=== PATIENT | male | born 1985 | race American Indian/Alaskan Native ===

== ENCOUNTER 2016-11-24 07:45 | Emergency (ER) | payer SELFPAY ==
[2016-11-24 08:08] VITALS: BP 139/82
--- NOTE | 2016-11-24 12:25 | Emergency Department Report ---
- General Chief complaint: Skin/Abscess/Foreign Body Stated complaint: BOIL UNDERARM,NAUSEA/FEVER Time Seen by Provider: 11/24/16 11:41 Source: patient Mode of arrival: Ambulatory Limitations: No Limitations - History of Present Illness Initial comments: Patient states that he started to notice small painful bumps under both of his armpits about 1.5 weeks ago, denies any drainage and bleeding; has been taking his sister's bactrim but it hasn't helped; has had abscesses in past; says he had a subjective fever a few days ago, but also had cold sxs that have now resolved MD complaint: abscess/boil -: week(s) (1.5) Tetanus Up to Date: unsure Location: [facility] Severity: moderate Severity scale (0 -10): 7 Quality: other (throbbing) Consistency: constant Improves with: none Worsens with: palpation Context: none Associated symptoms: chills Treatments Prior to Arrival: antibiotic - Related Data Previous Rx's Medication Instructions Recorded Last Taken Type Cephalexin [Keflex] 500 mg PO Q6HR #40 capsule 11/24/16 Unknown Rx Ibuprofen [Motrin] 600 mg PO Q8H PRN #20 tablet 11/24/16 Unknown Rx Sulfamethoxazole/Trimethoprim 1 each PO BID #20 tablet 11/24/16 Unknown Rx [Bactrim DS TAB] traMADol [Ultram 50 MG tab] 50 mg PO Q6HR PRN #12 tablet 11/24/16 Unknown Rx Allergies Allergy/AdvReac Type Severity Reaction Status Date / Time No Known Allergies Allergy Unverified 11/24/16 08:03 Abscess Boil HPI - HPI Chief Complaint: Skin/Abscess/Foreign Body Stated Complaint: BOIL UNDERARM,NAUSEA/FEVER Time Seen by Provider: 11/24/16 11:41 Duration: >1 Week Location: Other (bilateral axilla) History: Yes Fever, Yes Pain, Yes Previous History, No Purulent Drainage, No Numbness, No Foreign Body, No Insect Bite Home Medications: Previous Rx's Medication Instructions Recorded Last Taken Type Cephalexin [Keflex] 500 mg PO Q6HR #40 capsule 11/24/16 Unknown Rx Ibuprofen [Motrin] 600 mg PO Q8H PRN #20 tablet 11/24/16 Unknown Rx Sulfamethoxazole/Trimethoprim 1 each PO BID #20 tablet 11/24/16 Unknown Rx [Bactrim DS TAB] traMADol [Ultram 50 MG tab] 50 mg PO Q6HR PRN #12 tablet 11/24/16 Unknown Rx Allergies/Adverse Reactions: Allergies Allergy/AdvReac Type Severity Reaction Status Date / Time No Known Allergies Allergy Unverified 11/24/16 08:03 ED Review of Systems ROS: Stated complaint: BOIL UNDERARM,NAUSEA/FEVER Other details as noted in HPI Constitutional: chills, fever ENT: denies: ear pain, throat pain, congestion Respiratory: denies: cough, shortness of breath, wheezing Cardiovascular: denies: chest pain, palpitations Gastrointestinal: denies: abdominal pain, nausea, vomiting, diarrhea Skin: lesions, other (abscesses). denies: rash Neurological: denies: headache ED Past Medical Hx - Past Medical History Previous Medical History?: No - Surgical History Past Surgical History?: No - Social History Smoking Status: Light Tobacco Smoker Substance Use Type: None - Medications Home Medications: Home Medications Medication Instructions Recorded Confirmed Last Taken Type Cephalexin [Keflex] 500 mg PO Q6HR #40 capsule 11/24/16 Unknown Rx Ibuprofen [Motrin] 600 mg PO Q8H PRN #20 tablet 11/24/16 Unknown Rx Sulfamethoxazole/Trimethoprim 1 each PO BID #20 tablet 11/24/16 Unknown Rx [Bactrim DS TAB] traMADol [Ultram 50 MG tab] 50 mg PO Q6HR PRN #12 tablet 11/24/16 Unknown Rx ED Physical Exam - General Limitations: No Limitations General appearance: alert, in no apparent distress - Head Head exam: Present: atraumatic, normocephalic, normal inspection - Eye Eye exam: Present: normal appearance, PERRL, EOMI Pupils: Present: normal accommodation - ENT ENT exam: Present: normal orophraynx, mucous membranes moist - Neck Neck exam: Present: full ROM - Respiratory Respiratory exam: Present: normal lung sounds bilaterally. Absent: respiratory distress, wheezes, rales, rhonchi, stridor - Cardiovascular Cardiovascular Exam: Present: regular rate, normal rhythm, normal heart sounds - Back Exam Back exam: Present: full ROM - Neurological Exam Neurological exam: Present: alert, oriented X3, normal gait - Psychiatric Psychiatric exam: Present: normal affect, normal mood - Skin Skin exam: Present: warm, dry, intact, other (multiple small erythematous abscesses in bilateral axilla, no fluctuance in any, TTP, no active bleeding or drainage) ED Course Vital Signs 11/24/16 07:56 Temperature 98.9 F Pulse Rate 77 Respiratory 17 Rate Blood Pressure 139/82 O2 Sat by Pulse 100 Oximetry ED Medical Decision Making - Medical Decision Making Will send home with bactrim ds and keflex, told him to complete all and use pain medicine as needed, told him to use warm compresses on them, follow up with PCP if sxs don't improve, he verbalized understanding Critical care attestation.: If time is entered above; I have spent that time in minutes in the direct care of this critically ill patient, excluding procedure time. ED Disposition Clinical Impression: Abscess of axilla, left, Cutaneous abscess of right axilla Disposition: DISCHARGED TO HOME OR SELFCARE Is pt being admited?: No Does the pt Need Aspirin: No Condition: Stable Instructions: Abscess (ED) Prescriptions: Cephalexin [Keflex] 500 mg PO Q6HR #40 capsule Ibuprofen [Motrin] 600 mg PO Q8H PRN #20 tablet PRN Reason: Pain Sulfamethoxazole/Trimethoprim [Bactrim DS TAB] 1 each PO BID #20 tablet traMADol [Ultram 50 MG tab] 50 mg PO Q6HR PRN #12 tablet PRN Reason: Pain Referrals: PRIMARY CARE, [Primary Care Provider] - 3-5 Days Time of Disposition: 12:25 Print Language: KHMER
== END 2016-11-24 12:30 | disposition home or self-care (01) ==
LOC: ED 07:45
DX: L02.412 Cutaneous abscess of left axilla (principal); L02.411 Cutaneous abscess of right axilla; F17.200 Nicotine dependence, unspecified, uncomplicated
CPT/HCPCS: 99282

== ENCOUNTER 2017-05-31 10:55 | Emergency (ER) | payer MEDICAID ==
[2017-05-31 11:31] VITALS: BP 127/70
--- NOTE | 2017-05-31 11:31 | Emergency Department Report ---
Stated Complaint: FALL AT WORK, BACK PAIN AND HEAD PAIN Time Seen by Provider: 05/31/17 11:29 - HPI History of Present Illness: PT states he fell 05-13-17 and then he fell again today. 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 Due to findings the following was ordered: ct, xr ED Disposition for MSE Condition: Stable
--- NOTE | 2017-05-31 11:53 | Cat Scan Report ---
CRANIAL CT SCAN: History: Loss of consciousness after a fall with head trauma. Serial contiguous axial images were obtained through the cranium. Intravenous contrast material was not administered. The ventricles are normal in size and appearance. There is no mass effect or midline shift. No areas of abnormally increased or decreased attenuation are seen. No mass lesion is seen. The mastoid air cells and visualized portions of the sinuses are normal. IMPRESSION: Cranial CT scan within normal limits.
--- NOTE | 2017-05-31 12:22 | Cat Scan Report ---
CT SCAN OF THE CERVICAL SPINE: HISTORY: Neck injury after fall. TECHNIQUE: Contiguous 1.25 mm axial images of the cervical spine were obtained. Sagittal and coronal reformatted images. FINDINGS: There is normal alignment of the cervical spine. The body, pedicles and posterior ligaments appear normal. No evidence of fracture or subluxation is seen. The spinal canal appears normal. The prevertebral soft tissues appear normal. IMPRESSION: Unremarkable CT of the cervical spine. No acute process is noted.
--- NOTE | 2017-05-31 14:21 | XRay Report ---
LUMBOSACRAL SPINE, 3 VIEWS: History: Back pain Findings: The vertebral bodies, disk spaces and posterior elements are intact. No compression deformity or malalignment. The SI joints are symmetric and unremarkable. Impression: 1. No evidence for acute injury to the lumbar spine.
--- NOTE | 2017-05-31 14:22 | XRay Report ---
THORACIC SPINE, 2 views: History: Back pain after fall. The bones are normally mineralized with well preserved vertebral height, alignment and interspace distances. No paraspinal soft tissue widening is noted. IMPRESSION: Normal study.
--- NOTE | 2017-05-31 16:08 | Emergency Department Report ---
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 Pt states that he was in the bathroom and slipped and fell. Pt states that he was seen at the ER in [place] and they told him that the issue was not emergent per patient and was discharged with recommendations to take OTC medications. Pt states that he feels nauseous when he moves his head. Pt has been trying OTC medications with no relief of the symptoms. Pt also reports to some mid and low back pain, he denies any numbness, tingling, saddle anesthsia, or bowel/bladder incontinences. Pt also denies any chest pain, SOB, fever, or chills. - Related Data Previous Rx's Medication Instructions Recorded Last Taken Type Cephalexin [Keflex] 500 mg PO Q6HR #40 capsule 11/24/16 Unknown Rx Ibuprofen [Motrin] 600 mg PO Q8H PRN #20 tablet 11/24/16 Unknown Rx Sulfamethoxazole/Trimethoprim 1 each PO BID #20 tablet 11/24/16 Unknown Rx [Bactrim DS TAB] traMADol [Ultram 50 MG tab] 50 mg PO Q6HR PRN #12 tablet 11/24/16 Unknown Rx Acetaminophen [Acetaminophen ER 650 mg PO Q8HR PRN #18 tablet.er 05/31/17 Unknown Rx TAB] methOCARBAMOL [Robaxin TAB] 500 mg PO BID PRN #14 tab 05/31/17 Unknown Rx Allergies Allergy/AdvReac Type Severity Reaction Status Date / Time cyclobenzaprine HCl Allergy Unknown Verified 05/31/17 16:22 [From Flexeril] ibuprofen [From Motrin] Allergy Unknown Verified 05/31/17 16:22 tramadol Allergy Unknown Verified 05/31/17 16:22 ED Review of Systems ROS: Stated complaint: FALL AT WORK, BACK PAIN AND HEAD PAIN Other details as noted in HPI Constitutional: denies: chills, fever Eyes: denies: eye pain, eye discharge, vision change ENT: denies: as per HPI, ear pain, throat pain Respiratory: denies: cough, shortness of breath, wheezing Cardiovascular: denies: chest pain, palpitations Endocrine: no symptoms reported Gastrointestinal: denies: abdominal pain, nausea, diarrhea Genitourinary: denies: urgency, dysuria Musculoskeletal: back pain Skin: denies: rash, lesions Neurological: headache, weakness Psychiatric: denies: anxiety, depression Hematological/Lymphatic: denies: easy bleeding, easy bruising ED Past Medical Hx - Past Medical History Previous Medical History?: No - Surgical History Past Surgical History?: No - Social History Smoking Status: Current Every Day Smoker Substance Use Type: None - Medications Home Medications: Home Medications Medication Instructions Recorded Confirmed Last Taken Type Cephalexin [Keflex] 500 mg PO Q6HR #40 capsule 11/24/16 Unknown Rx Ibuprofen [Motrin] 600 mg PO Q8H PRN #20 tablet 11/24/16 Unknown Rx Sulfamethoxazole/Trimethoprim 1 each PO BID #20 tablet 11/24/16 Unknown Rx [Bactrim DS TAB] traMADol [Ultram 50 MG tab] 50 mg PO Q6HR PRN #12 tablet 11/24/16 Unknown Rx Acetaminophen [Acetaminophen ER 650 mg PO Q8HR PRN #18 tablet.er 05/31/17 Unknown Rx TAB] methOCARBAMOL [Robaxin TAB] 500 mg PO BID PRN #14 tab 05/31/17 Unknown Rx ED Physical Exam - General Limitations: No Limitations General appearance: alert, in no apparent distress - Head Head exam: Present: atraumatic, normocephalic, normal inspection, other (full flexion, extension, abduction, and adduction of the head) - Eye Eye exam: Present: normal appearance, PERRL, EOMI - ENT ENT exam: Present: mucous membranes moist - Neck Neck exam: Present: normal inspection, full ROM - Respiratory Respiratory exam: Present: normal lung sounds bilaterally. Absent: respiratory distress - Cardiovascular Cardiovascular Exam: Present: regular rate, normal rhythm. Absent: systolic murmur, diastolic murmur, rubs, gallop - Extremities Exam Extremities exam: Present: normal inspection, full ROM - Back Exam Back exam: Present: normal inspection, full ROM, tenderness (mild tenderness along the thoracic and lumbar region), muscle spasm, paraspinal tenderness, other (no redness, swelling, or warmth noted) - Neurological Exam Neurological exam: Present: alert, oriented X3, CN II-XII intact, normal gait, other (balance and coordination was normal without any deficits) - Expanded Neurological Exam Expanded Patient oriented to: Present: person, place, time Speech: Present: fluid speech (normal no deficits) Cranial nerves: EOM's Intact: Normal Cerebellar function: Finger to Nose: Normal, Heel to [place]: Normal Sensory exam: Upper Extremity Light Touch: Normal, Lower Extremity Light Touch: Normal Motor strength exam: RUE: 5, LUE: 5, RLE: 5, LLE: 5 DTR: knee (R): 2+, knee (L): 2+ Best Eye Response (Tom): (4) open spontaneously Best Motor Response (Tom): (6) obeys commands Best Verbal Response ([place]): (5) oriented [place] Total: 15 - Psychiatric Psychiatric exam: Present: normal affect, normal mood - Skin Skin exam: Present: warm, dry, intact, normal color, other (no raccoon eyes or castillo sign apparent). Absent: rash ED Course Vital Signs 05/31/17 11:29 Temperature 98.2 F Pulse Rate 83 Respiratory 18 Rate Blood Pressure 127/70 O2 Sat by Pulse 99 Oximetry ED Medical Decision Making - Radiology Data Radiology results: image reviewed Imaging including: c-spine, CT head, L spine, and T-spine were conducted in the ED today, all of the imaging was unremarkable. - Medical Decision Making Pt was complaining of lignering pain and effects after a fall that occured on May 12. We have conducted CT head, C-spine, l spine xray, and t spine xray imaging in the ED all of which were unremarkable. On examination pt was alert and oriented, neurological examination was unremarkable, no focal/neuro deficits. Pt was alert and oriented, cerebellum and gait was normal. 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 Pt was given referrals to neurology and orthopedics for further evaluation for continued/worsening symptoms. pt's vitals were all stable here in the ED. Pt was in such a hurry to leave stating that he had to pickle pumper his child, that he did not stay for any pain medications in the ER. Critical care attestation.: If time is entered above; I have spent that time in minutes in the direct care of this critically ill patient, excluding procedure time. ED Disposition Clinical Impression: Headache Qualifiers: Headache type: unspecified Headache chronicity pattern: unspecified pattern Intractability: not intractable Qualified Code(s): R51 - Headache Back pain Qualifiers: Back pain location: thoracic back pain Chronicity: acute Back pain laterality: midline Qualified Code(s): M54.6 - Pain in thoracic spine Disposition: DC-01 TO HOME OR SELFCARE Is pt being admited?: No Does the pt Need Aspirin: No Condition: Stable Instructions: Methocarbamol (By mouth), Back Pain (ED) Additional Instructions: Please take the medications as given to you as needed for the pain. Please be advised that such medications may cause drowsiness, do not take when driving or operating heavy machinery. Please follow-up with pcp within 3-5 days. Neurology and orthopedic referrals provided to you for continued symptoms. Please return to the ED immediately with any acute worsening of symptoms. Prescriptions: Acetaminophen [Acetaminophen ER TAB] 650 mg PO Q8HR PRN #18 tablet.er PRN Reason: Pain methOCARBAMOL [Robaxin TAB] 500 mg PO BID PRN #14 tab PRN Reason: muscle spasms Referrals: PRIMARY CAREMD [Primary Care Provider] - 3-5 Days ROXANE BLUNT MD [Staff Physician] - 3-5 Days ALETHA LYONS MD [Staff Physician] - 3-5 Days [facility] [Outside] - 3-5 Days [facility] [Outside] - 3-5 Days Forms: Work/School Release Form
== END 2017-05-31 16:20 | disposition home or self-care (01) ==
LOC: ED 10:55
DX: R51 Headache (principal); M54.6 Pain in thoracic spine; F17.200 Nicotine dependence, unspecified, uncomplicated; Z88.6 Allergy status to analgesic agent; Z88.8 Allergy status to other drugs, medicaments and biological substances; W01.0XXA Fall on same level from slipping, tripping and stumbling without subsequent striking against object, initial encounter; Y93.89 Activity, other specified; Y92.89 Other specified places as the place of occurrence of the external cause; Y99.8 Other external cause status
CPT/HCPCS: 70450; 72070; 72100; 72125

== ENCOUNTER 2017-10-17 06:59 | Emergency (ER) | payer MEDICAID, OTHER ==
[2017-10-17 07:34] VITALS: BP 115/66
[2017-10-17 07:58] LABS: Basophils # (Auto) 0.1 K/mm3 (0.0-0.1); Basophils % (Auto) 1.1 % (0.0-1.8); Eosinophils % (Auto) 0.3 % (0.0-4.3); Hemoglobin 15.4 gm/dl (11.8-15.2); Lymphocytes # (Auto) 0.6 K/mm3 (1.2-5.4); Lymphocytes % (Auto) 7.2 % (13.4-35.0); Mean Corpuscular HGB Conc 34 % (32-34); Mean Corpuscular Hemoglobin 31 pg (28-32); Mean Corpuscular Volume 90 fl (84-94); Monocytes # (Auto) 1.3 K/mm3 (0.0-0.8); Monocytes % (Auto) 15.2 % (0.0-7.3); Platelet Count 211 K/mm3 (140-440); Red Blood Count 5.02 M/mm3 (3.65-5.03); Red Cell Distribution Width 13.6 % (13.2-15.2)
[2017-10-17 08:12] LABS: Alanine Aminotransferase 12 units/L (7-56); Albumin 3.8 g/dL (3.9-5); BUN/Creatinine Ratio 5; Blood Urea Nitrogen 5 mg/dL (9-20); Calcium 8.9 mg/dL (8.4-10.2); Hemolysis Index 8
[2017-10-17 08:30] LABS: Bilirubin,Urine NEG (Negative); Blood,Urine NEG (Negative); Color,Urine Yellow (Yellow); Mucus,Urine FEW /HPF; Nitrite,Urine NEG (Negative); Protein,Urine <15 mg/dL mg/dL (Negative); Urobilinogen,Urine < 2.0 mg/dL (<2.0); WBC,Urine < 1.0 /HPF (0.0-6.0)
== END 2017-10-17 11:19 | disposition left against medical advice (07) ==
LOC: ED 06:59
DX: J00 Acute nasopharyngitis [common cold] (principal); Z53.21 Procedure and treatment not carried out due to patient leaving prior to being seen by health care provider
CPT/HCPCS: 36415; 80053; 81001; 85025

== ENCOUNTER 2018-12-11 07:53 | Emergency (ER) | payer SELFPAY ==
[2018-12-11 07:58] VITALS: BP 140/82
--- NOTE | 2018-12-11 08:59 | Emergency Department Report ---
Abscess Boil HPI - HPI Chief Complaint: Skin/Abscess/Foreign Body Stated Complaint: FEVER BREAK OUT/BOIL UNDER ARMPITS Time Seen by Provider: 12/11/18 08:34 Duration: 3 Days Location: Upper Extremity (bilat armpits) Severity: Mild History: Yes Pain, No Fever, No Purulent Drainage, No Numbness, No Foreign Body, No Previous History, No Insect Bite Home Medications: Previous Rx's Medication Instructions Recorded Last Taken Type Ibuprofen [Motrin] 600 mg PO Q8H PRN #20 tablet 11/24/16 Unknown Rx Sulfamethoxazole/Trimethoprim 1 each PO BID #20 tablet 11/24/16 Unknown Rx [Bactrim DS TAB] traMADol [Ultram 50 MG tab] 50 mg PO Q6HR PRN #12 tablet 11/24/16 Unknown Rx Acetaminophen [Acetaminophen ER 650 mg PO Q8HR PRN #18 tablet.er 05/31/17 Unknown Rx TAB] methOCARBAMOL [Robaxin TAB] 500 mg PO BID PRN #14 tab 05/31/17 Unknown Rx Clotrimazole 1% [Lotrimin] 1 applicatio TP BID #15 gram 06/16/18 Unknown Rx Sulfamethoxazole/Trimethoprim 1 each PO BID #10 tablet 12/11/18 Unknown Rx [Bactrim DS TAB] cephALEXin [Keflex] 500 mg PO Q6HR #40 capsule 12/11/18 Unknown Rx Allergies/Adverse Reactions: Allergies Allergy/AdvReac Type Severity Reaction Status Date / Time cyclobenzaprine HCl Allergy Unknown Verified 10/17/17 07:34 [From Flexeril] ibuprofen [From Motrin] Allergy Unknown Verified 10/17/17 07:34 tramadol Allergy Unknown Verified 10/17/17 07:34 ED Review of Systems ROS: Stated complaint: FEVER BREAK OUT/BOIL UNDER ARMPITS Other details as noted in HPI Comment: All other systems reviewed and negative ED Past Medical Hx - Past Medical History Previous Medical History?: No - Surgical History Past Surgical History?: No - Social History Smoking Status: Current Every Day Smoker Substance Use Type: None - Medications Home Medications: Home Medications Medication Instructions Recorded Confirmed Last Taken Type Ibuprofen [Motrin] 600 mg PO Q8H PRN #20 tablet 11/24/16 Unknown Rx Sulfamethoxazole/Trimethoprim 1 each PO BID #20 tablet 11/24/16 Unknown Rx [Bactrim DS TAB] traMADol [Ultram 50 MG tab] 50 mg PO Q6HR PRN #12 tablet 11/24/16 Unknown Rx Acetaminophen [Acetaminophen ER 650 mg PO Q8HR PRN #18 tablet.er 05/31/17 Unknown Rx TAB] methOCARBAMOL [Robaxin TAB] 500 mg PO BID PRN #14 tab 05/31/17 Unknown Rx Clotrimazole 1% [Lotrimin] 1 applicatio TP BID #15 gram 06/16/18 Unknown Rx Sulfamethoxazole/Trimethoprim 1 each PO BID #10 tablet 12/11/18 Unknown Rx [Bactrim DS TAB] cephALEXin [Keflex] 500 mg PO Q6HR #40 capsule 12/11/18 Unknown Rx ED Abscess Boil Physical Exam - Exam General: Vital signs noted. No distress. Alert and acting appropriately. Size: 1 cm Exam: Yes Tenderness, No Fluctuance, No Surrounding Cellulites/Erythema, No Lymphangitis, No Crepitation, No Heart Murmur, No Normal Neurologic Exam, No Normal Circulation Exam: About 4-5 small 1 cm erythematous raised boils in bilateral arm pain, mildly tender to palpation, no pus drainage I & D Note - I & D Note I & D Note: Small less than 1 cm cellitus of the axillary folds, nonfluctuant, incision and drainage is not necessary and not performed ED Course Vital Signs 12/11/18 07:56 Temperature 97.8 F Pulse Rate 83 Respiratory 16 Rate Blood Pressure 140/82 O2 Sat by Pulse 99 Oximetry Critical care attestation.: If time is entered above; I have spent that time in minutes in the direct care of this critically ill patient, excluding procedure time. ED Medical Decision Making - Medical Decision Making 33-year-old male presents with bilateral axillary fold cellulitis Discussed the patient hit a petition 3 times a day Discussed with the patient is antibiotics Vital signs are normal patient is in acute distress ED Disposition Clinical Impression: Cellulitis of axillary fold Disposition: DC-01 TO HOME OR SELFCARE Is pt being admited?: No Does the pt Need Aspirin: No Condition: Stable Instructions: Abscess (ED) Additional Instructions: Make sure to follow up with the primary care physician as discussed. Take all your medications as you've been prescribed. If you have any worsening symptoms or develop new symptoms please return to ED immediately. Prescriptions: Sulfamethoxazole/Trimethoprim [Bactrim DS TAB] 1 each PO BID #10 tablet cephALEXin [Keflex] 500 mg PO Q6HR #40 capsule Referrals: MAGALYS PETERSON MD [Primary Care Provider] - 3-5 Days Forms: Work/School Release Form(ED) Time of Disposition: 09:01
== END 2018-12-11 09:20 | disposition home or self-care (01) ==
LOC: ED 07:53
DX: L03.112 Cellulitis of left axilla (principal); L03.111 Cellulitis of right axilla; F17.200 Nicotine dependence, unspecified, uncomplicated; Z88.1 Allergy status to other antibiotic agents; Z88.6 Allergy status to analgesic agent
CPT/HCPCS: 99281

== ENCOUNTER 2018-12-14 11:13 | Emergency (ER) | payer SELFPAY ==
[2018-12-14 11:43] VITALS: BP 114/77
[2018-12-14] MEDS ORDERED: TYLENOL PO ONE (12:05)
--- NOTE | 2018-12-14 12:48 | Emergency Department Report ---
Abscess Boil HPI - HPI Chief Complaint: Skin/Abscess/Foreign Body Stated Complaint: FEVER/WEAKNESS Time Seen by Provider: 12/14/18 11:50 Duration: 3 Days Location: Upper Extremity Severity: Mild History: Yes Fever, Yes Pain, No Purulent Drainage, No Numbness, No Foreign Body, No Previous History, No Insect Bite HPI: This is a 33-year-old male nontoxic, well nourished in appearance, no acute signs of distress presents to the ED with c/o of bilateral axilla malleolus. Patient stated he was here 3 days ago and has been given Keflex and Bactrim and has been taking the symptoms has not resolved yet. Patient stated has no pus or drainage. Denies any numbness, tingling, chest pain, shortness of breath, headache or stiff neck. Patient denies significant past medical history. Home Medications: Previous Rx's Medication Instructions Recorded Last Taken Type Ibuprofen [Motrin] 600 mg PO Q8H PRN #20 tablet 11/24/16 Unknown Rx Sulfamethoxazole/Trimethoprim 1 each PO BID #20 tablet 11/24/16 Unknown Rx [Bactrim DS TAB] traMADol [Ultram 50 MG tab] 50 mg PO Q6HR PRN #12 tablet 11/24/16 Unknown Rx Acetaminophen [Acetaminophen ER 650 mg PO Q8HR PRN #18 tablet.er 05/31/17 Unknown Rx TAB] methOCARBAMOL [Robaxin TAB] 500 mg PO BID PRN #14 tab 05/31/17 Unknown Rx Clotrimazole 1% [Lotrimin] 1 applicatio TP BID #15 gram 06/16/18 Unknown Rx Sulfamethoxazole/Trimethoprim 1 each PO BID #10 tablet 12/11/18 Unknown Rx [Bactrim DS TAB] cephALEXin [Keflex] 500 mg PO Q6HR #40 capsule 12/11/18 Unknown Rx Acetaminophen/Codeine [Tylenol 1 tab PO Q6H PRN #12 tab 12/14/18 Unknown Rx /Codeine # 3 tab] Clindamycin [Clindamycin CAP] 300 mg PO Q8H #21 cap 12/14/18 Unknown Rx Allergies/Adverse Reactions: Allergies Allergy/AdvReac Type Severity Reaction Status Date / Time cyclobenzaprine HCl Allergy Unknown Verified 12/14/18 11:16 [From Flexeril] ibuprofen [From Motrin] Allergy Unknown Verified 12/14/18 11:16 tramadol Allergy Unknown Verified 12/14/18 11:16 ED Review of Systems ROS: Stated complaint: FEVER/WEAKNESS Other details as noted in HPI Constitutional: denies: chills, fever Eyes: denies: eye pain, eye discharge, vision change ENT: denies: ear pain, throat pain Respiratory: denies: cough, shortness of breath, wheezing Cardiovascular: denies: chest pain, palpitations Endocrine: no symptoms reported Gastrointestinal: denies: abdominal pain, nausea, diarrhea Genitourinary: denies: urgency, dysuria Musculoskeletal: denies: back pain, joint swelling, arthralgia Skin: denies: rash, lesions Neurological: denies: headache, weakness, paresthesias Psychiatric: denies: anxiety, depression Hematological/Lymphatic: denies: easy bleeding, easy bruising ED Past Medical Hx - Past Medical History Previous Medical History?: No - Surgical History Past Surgical History?: No - Social History Smoking Status: Never Smoker - Medications Home Medications: Home Medications Medication Instructions Recorded Confirmed Last Taken Type Ibuprofen [Motrin] 600 mg PO Q8H PRN #20 tablet 11/24/16 Unknown Rx Sulfamethoxazole/Trimethoprim 1 each PO BID #20 tablet 11/24/16 Unknown Rx [Bactrim DS TAB] traMADol [Ultram 50 MG tab] 50 mg PO Q6HR PRN #12 tablet 11/24/16 Unknown Rx Acetaminophen [Acetaminophen ER 650 mg PO Q8HR PRN #18 tablet.er 05/31/17 Unknown Rx TAB] methOCARBAMOL [Robaxin TAB] 500 mg PO BID PRN #14 tab 05/31/17 Unknown Rx Clotrimazole 1% [Lotrimin] 1 applicatio TP BID #15 gram 06/16/18 Unknown Rx Sulfamethoxazole/Trimethoprim 1 each PO BID #10 tablet 12/11/18 Unknown Rx [Bactrim DS TAB] cephALEXin [Keflex] 500 mg PO Q6HR #40 capsule 12/11/18 Unknown Rx Acetaminophen/Codeine [Tylenol 1 tab PO Q6H PRN #12 tab 12/14/18 Unknown Rx /Codeine # 3 tab] Clindamycin [Clindamycin CAP] 300 mg PO Q8H #21 cap 12/14/18 Unknown Rx ED Abscess Boil Physical Exam - Exam General: Vital signs noted. No distress. Alert and acting appropriately. Size: 1 cm Exam: Yes Tenderness, Yes Surrounding Cellulites/Erythema, Yes Normal Neurologic Exam, Yes Normal Circulation, No Fluctuance, No Lymphangitis, No Crepitation, No Heart Murmur ED Course Vital Signs 12/14/18 12/14/18 12/14/18 11:40 11:59 12:25 Temperature 99.7 F H Pulse Rate 81 Respiratory 81 H 14 14 Rate Blood Pressure 114/77 O2 Sat by Pulse 98 Oximetry - Reevaluation(s) Reevaluation #1: 12/14/18 12:47 Patient is speaking in full sentences with no signs of distress noted. Critical care attestation.: If time is entered above; I have spent that time in minutes in the direct care of this critically ill patient, excluding procedure time. ED Medical Decision Making - Medical Decision Making This is a 33-year-old male that presents with cellulitis. Patient is stable and was examined by me. There is no induration, fluctuance. No signs of abscess formation. The area seems more tender and mobile. Patient has only been taking medications for 2 days and today reported third day. I will add clindamycin at discharge. Patient does not seem toxic or septic. He does have a mild fever of 99.7 and received Tylenol and vital signs are stable prior to discharge. Normal heart rate. Patient was referred to Follow-up with a primary care doctor in 3- 5 days or if symptoms worsen and continue return to emergency room as soon as possible. At time of discharge, the patient does not seem toxic or ill in appearance. No acute signs of distress noted. Patient agrees to discharge treatment plan of care. No further questions noted by the patient. ED Disposition Clinical Impression: Cellulitis Qualifiers: Site of cellulitis: extremity Site of cellulitis of extremity: upper extremity Laterality: unspecified laterality Qualified Code(s): L03.119 - Cellulitis of unspecified part of limb Disposition: -01 TO HOME OR SELFCARE Is pt being admited?: No Does the pt Need Aspirin: No Condition: Stable Instructions: Cellulitis (ED), Acetaminophen/Codeine (By mouth) Additional Instructions: Follow-up with a primary care doctor in 3-5 days or if symptoms worsen and continue return to emergency room as soon as possible. Do not operate any machinery while taking Tylenol with codeine as this may cause drowsiness. Prescriptions: Clindamycin [Clindamycin CAP] 300 mg PO Q8H #21 cap Acetaminophen/Codeine [Tylenol /Codeine # 3 tab] 1 tab PO Q6H PRN #12 tab PRN Reason: Pain , Severe (7-10) Referrals: [facility] MD KAYLEY [Primary Care Provider] - 3-5 Days PRIMARY CAREMD [Referring] - 3-5 Days EVERTON BALDWIN MD [Staff Physician] - 3-5 Days [facility] [Outside] - 3-5 Days [facility] [Outside] - 3-5 Days Forms: Work/School Release Form(ED)
== END 2018-12-14 13:02 | disposition home or self-care (01) ==
LOC: ED 11:13
DX: L03.112 Cellulitis of left axilla (principal); L03.111 Cellulitis of right axilla; Z88.1 Allergy status to other antibiotic agents; Z88.6 Allergy status to analgesic agent
CPT/HCPCS: 99282

== ENCOUNTER 2019-07-11 11:57 | Emergency (ER) | payer OTHER ==
[2019-07-11 12:24] VITALS: BP 160/101
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
[2019-07-11] MEDS ORDERED: ACETAMINOPHEN 500 MG TAB PO ONE (14:22)
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
== END 2019-07-11 14:47 | disposition home or self-care (01) ==
LOC: ED 11:57
DX: S29.012A Strain of muscle and tendon of back wall of thorax, initial encounter (principal); S39.012A Strain of muscle, fascia and tendon of lower back, initial encounter; F17.200 Nicotine dependence, unspecified, uncomplicated; Z79.899 Other long term (current) drug therapy; Z88.8 Allergy status to other drugs, medicaments and biological substances; Z88.6 Allergy status to analgesic agent; V49.59XA Passenger injured in collision with other motor vehicles in traffic accident, initial encounter; Y93.89 Activity, other specified; Y92.410 Unspecified street and highway as the place of occurrence of the external cause; Y99.8 Other external cause status
CPT/HCPCS: 72072; 72100